=== PATIENT | male | born 1980 | race Caucasian/White ===

== ENCOUNTER 2018-07-29 08:45 | Outpatient (CLI) | payer BC | END 2018-07-29 09:15 | disposition home or self-care (01) | LOC: SLEEP 08:45 | PROVIDERS: ATTEND Otolaryngology Otolaryngology/Facial Plastic Surgery | DX: G47.33 Obstructive sleep apnea (adult) (pediatric) (principal); R06.83 Snoring ==

== ENCOUNTER → 2018-11-30 | Outpatient (CLI) | payer BC ==
[2018-11-30 16:23] LABS: BUN/CREATININE RATIO 9; CALCIUM 9.7 MG/DL (8.5-10.1); CARBON DIOXIDE 23 MMOL/L (21-32); CHLORIDE 103 MMOL/L (98-107); GFR ESTIMATED > 60; GLUCOSE 88 MG/DL (70-105); POTASSIUM 4.1 MMOL/L (3.6-5.0); SODIUM 137 MMOL/L (135-145)
== END ==
LOC: LAB 15:51
PROVIDERS: ATTEND Radiology Diagnostic Radiology
DX: C64.1 Malignant neoplasm of right kidney, except renal pelvis (principal); C64.2 Malignant neoplasm of left kidney, except renal pelvis
CPT/HCPCS: 36415; 80048

== ENCOUNTER → 2019-08-04 | Outpatient (CLI) | payer BC | LOC: LAB 07:37 | PROVIDERS: ATTEND Family Medicine | DX: R53.83 Other fatigue (principal) | CPT/HCPCS: 36415; 80061; 84443 ==

== ENCOUNTER 2021-11-04 16:18 | Outpatient (RCR) | payer BC | END 2021-11-10 | disposition home or self-care (01) | PROVIDERS: ATTEND Surgery Surgical Oncology | DX: M25.611 Stiffness of right shoulder, not elsewhere classified (principal); I10 Essential (primary) hypertension; Z87.39 Personal history of other diseases of the musculoskeletal system and connective tissue ==

== ENCOUNTER 2021-12-09 16:33 | Outpatient (RCR) | payer BC | END 2021-12-11 | disposition home or self-care (01) | PROVIDERS: ATTEND Surgery Surgical Oncology | DX: M25.611 Stiffness of right shoulder, not elsewhere classified (principal); I10 Essential (primary) hypertension; Z87.39 Personal history of other diseases of the musculoskeletal system and connective tissue ==

== ENCOUNTER 2022-01-09 15:47 | Outpatient (RCR) | payer BC | END 2022-01-10 | disposition home or self-care (01) | PROVIDERS: ATTEND Surgery Surgical Oncology | DX: M25.611 Stiffness of right shoulder, not elsewhere classified (principal); I10 Essential (primary) hypertension; Z87.39 Personal history of other diseases of the musculoskeletal system and connective tissue ==

== ENCOUNTER 2022-01-28 16:16 | Outpatient (RCR) | payer BC | END 2022-02-10 | disposition home or self-care (01) | PROVIDERS: ATTEND Surgery Surgical Oncology | DX: M25.611 Stiffness of right shoulder, not elsewhere classified (principal); I10 Essential (primary) hypertension; Z87.39 Personal history of other diseases of the musculoskeletal system and connective tissue ==

== ENCOUNTER 2022-02-25 16:22 | Outpatient (RCR) | payer BC | END 2022-02-25 17:00 | disposition home or self-care (01) | PROVIDERS: ATTEND Surgery Surgical Oncology | DX: M25.611 Stiffness of right shoulder, not elsewhere classified (principal); I10 Essential (primary) hypertension; Z87.39 Personal history of other diseases of the musculoskeletal system and connective tissue ==